=== PATIENT | male | born 1945 | race Caucasian/White ===

== ENCOUNTER 2022-10-11 09:00 | Outpatient (RCR) | payer MEDICARE, BC, SELFPAY | END 2023-02-08 23:59 | disposition home or self-care (01) | PROVIDERS: PCP Surgery; Visit Provider Surgery | DX: H81.11 Benign paroxysmal vertigo, right ear (principal); Z51.89 Encounter for other specified aftercare | CPT/HCPCS: 95992; 97110; 97140; 97162; 97535 ==

== ENCOUNTER 2023-03-08 08:51 | Outpatient (RCR) | payer MEDICARE, BC, SELFPAY | END 2023-04-26 10:15 | disposition home or self-care (01) | PROVIDERS: PCP Surgery; Visit Provider Surgery | DX: M54.2 Cervicalgia (principal); R26.89 Other abnormalities of gait and mobility; Z74.09 Other reduced mobility; Z51.89 Encounter for other specified aftercare | CPT/HCPCS: 97110; 97112; 97162; 97535 ==

== ENCOUNTER 2023-04-26 08:45 | Outpatient (RCR) | payer MEDICARE, BC, SELFPAY ==
--- NOTE | 2023-02-28 15:56 | PT.OPEX ---
PT [place] [facility] Eval Start: 02/28/23 10:29 Freq: Status: Active Protocol: Document 02/28/23 10:30 FLOWERV (Rec: 02/28/23 15:09 KLV [id number]) E-signed By Bere Cowan, PT Physical Therapy Outpatient Evaluation Insurance Information Recert Due Date 05/25/23 Insurance Name Medicare B,Blue [employer] Medical Diagnosis Cervicalgia Treating Diagnosis Cervicalgia, limited cervical ROM, limited shoulder and thoracic ROM Referring MD García Subjective Subjective Jacky reports to PT with primary complaint of chronic neck pain with initial onset about 2 years ago following 45 day hospital stay with COVID. He notes general stiffness and difficulty looking over his shoulders (R>L) particularly affecting his ability to drive . Denies radicular symptoms- does not some arthritis in R wrist/hand. Has been treated in the past with PT for vertigo issues. Denies these symptoms currently, just generally has frequent headaches on the right side. Denies changes in vision or hearing. He does also note memory issues following bout of COVID and had a hard time remembering to perform exercises in the past at home. PMH: diabetes Pain Comments 02/19 worst Date of Last Physician Visit 02/06/23 Current Work Status Retired Occupation Retired box truck washer Preferred Name Jacky Precautions Therapy Limitations/Systems Review Not Limited Objective Other/Pertinent Objective Cervical ROM: -Flx: 33 -Ext: 23 -R Rot: 26 -L Rot: 51 -R Sidebend: 9 -L Sidebend: 16 DNF strength: able to hold 10 sec prior to accessory muscle use Seated UE ROM (R/L): -Abd: 140/145 -FF: 135/140 Thoracic rotation: about 50% each direction No TTP along cervical spine Increased tone R>L UT/levator Hypomobile L cervical sideglide Functional Test Performed & Score NDI: 11, 22% Assessment Assessment/Impression Patient is a 78 year old male presenting to physical therapy for evaluation and treatment of chronic neck pain. Patient presents with limited cervical (R>L) SB and rotation, shoulder and thoracic ROM. These impairments are limiting the patients ability to look over his shoulders, particularly while driving, perform ADLs without restriction in regards to neck . Patient appears motivated to participate in PT and presents with good prognosis to improve mobility, strength, proprioception and return to functional activities with skilled physical therapy intervention. Primary Functional Limitations look over his shoulders, particularly while driving, perform ADLs without restriction in regards to neck Plan of Care Rehabilitation Potential Good Physical Therapy Goals In 6 weeks (04/11/23) Pt will demonstrate at least 40 deg cervical rotation B in order to improve ability to look over his shoulders while driving Pt will report <5/10 neck pain with ADLs in order to demonstrate functional improvement In 10 weeks (05/09/23) Pt will exhibit 10% improvement (or 5 points) in NDI Outcome measure to demonstrate functional improvement and progress towards goals Pt will demonstrate at least 60 deg cervical rotation B in order to improve ability to look over his shoulders while driving Pt will report <3/10 neck pain with ADLs in order to demonstrate functional improvement Treatment Plan/Direct Interventions Ice/Cold/Vasopneumatic,Joint Mobilization,Manual Therapy, Neuromuscular Re-ed,Self-Care/ Home Management,Therapeutic Activities,Therapeutic Exercises Frequency/Duration 1x/wk for 6 weeks with additional 4 sessions prn based on progress Patient Will Be Discharged From Therapy Completion of LTG(s), Independent w/HEP, Independently Progressing Evaluation Billing Untimed Code Treatment Minutes 18 Complexity Low Certification Information Initial Certification Date 02/28/23 Ending Certification Date 05/25/23 Provider Signature Shows Agreement With POC & Medical Necessity Physician Signature & Date Requested Please Sign/Date Here Physician Comment/Change : Physician NPI Number #
== END 2023-08-24 23:59 | disposition home or self-care (01) ==
PROVIDERS: PCP Surgery; Visit Provider Family Medicine
DX: M54.2 Cervicalgia (principal); G89.29 Other chronic pain; M47.812 Spondylosis without myelopathy or radiculopathy, cervical region; R26.81 Unsteadiness on feet; R53.83 Other fatigue; R26.9 Unspecified abnormalities of gait and mobility; Z74.09 Other reduced mobility; Z51.89 Encounter for other specified aftercare
CPT/HCPCS: 97110; 97140; 97161

== ENCOUNTER 2024-02-23 14:00 | Outpatient (RCR) | payer MEDICARE, BC, SELFPAY | END 2024-06-22 23:59 | disposition home or self-care (01) | PROVIDERS: PCP Surgery; Visit Provider Surgery | DX: M48.02 Spinal stenosis, cervical region (principal); M54.2 Cervicalgia; G89.29 Other chronic pain; M51.362 Other intervertebral disc degeneration, lumbar region with discogenic back pain and lower extremity pain; M54.16 Radiculopathy, lumbar region; Z51.89 Encounter for other specified aftercare | CPT/HCPCS: 97110; 97140; 97162 ==

== ENCOUNTER 2024-04-03 09:26 | Outpatient (RCR) | payer MEDICARE, BC, SELFPAY | END 2024-08-01 23:59 | disposition home or self-care (01) | PROVIDERS: PCP Surgery; Visit Provider Surgery | DX: M51.362 Other intervertebral disc degeneration, lumbar region with discogenic back pain and lower extremity pain (principal); M54.16 Radiculopathy, lumbar region; Z51.89 Encounter for other specified aftercare | CPT/HCPCS: 97110; 97162 ==

== ENCOUNTER 2024-10-08 07:46 | Outpatient (CLI) | payer MEDICARE, BC, SELFPAY | END 2024-10-08 07:47 | disposition home or self-care (01) | LOC: INJ CL 07:49 | PROVIDERS: PCP Surgery; Visit Provider Family Medicine | DX: M54.16 Radiculopathy, lumbar region (principal); M51.369 Other intervertebral disc degeneration, lumbar region without mention of lumbar back pain or lower extremity pain | CPT/HCPCS: 64483; J1100; Q9966 ==